=== PATIENT | male | born 1960 | race African-American/Black ===

== ENCOUNTER 2018-04-16 10:09 | Emergency (ER) | payer OTHER ==
[~2018-04-16] VITALS: Ht 188 cm; Wt 109.0 kg
[2018-04-16] MEDS ORDERED: HYDROCODONE/ACETAMINOPHEN 5/325MG TABLET PO ONE (10:45)
[2018-04-16 10:50] VITALS: BP 151/88
== END 2018-04-16 11:29 | disposition left against medical advice (07) ==
LOC: ER 11:13
DX: J06.9 Acute upper respiratory infection, unspecified (principal); M79.604 Pain in right leg; R07.89 Other chest pain; J44.9 Chronic obstructive pulmonary disease, unspecified; I10 Essential (primary) hypertension; F17.200 Nicotine dependence, unspecified, uncomplicated; Z98.890 Other specified postprocedural states
CPT/HCPCS: 93005; 99283

== ENCOUNTER 2018-04-23 12:42 | Inpatient (IN) | payer OTHER ==
[~2018-04-23] VITALS: Ht 190.5 cm; Wt 115.7 kg
[2018-04-23] MEDS ORDERED: ALBUTEROL (0.083%) 2.5MG/3ML NEB HHN STA ×2 (14:32→17:33)
[2018-04-23] MEDS ORDERED: IPRATROPIUM BROMIDE (0.02%) 0.5MG/2.5ML NEB HHN STA ×2 (14:32→17:33)
[2018-04-23 15:22] LABS: BASOPHILS % 0.7 % (0.0-2.0); EOSINOPHILS % 1.2 % (0.0-5.0); HEMATOCRIT. 41.5 % (42.0-52.0); HEMOGLOBIN. 13.9 g/dL (14.0-18.0); LYMPHOCYTES % 25.4 % (20.0-50.0); MEAN CORPUSCULAR HEMOGLOBIN 30.7 pg (28.0-32.0); MEAN CORPUSCULAR VOLUME 91.6 fL (80.0-94.0); MEAN PLATELET VOLUME 7.5 fl (7.4-10.4); MONOCYTES % 9.4 % (2.0-8.0); NEUTROPHILS % 63.3 % (40.0-76.0); PLATELET 239 x1000/uL (130-400); RED BLOOD CELL COUNT 4.53 mill/uL (4.7-6.1)
[2018-04-23 15:34] LABS: CHLORIDE 106 mEq/L (98-107)
[2018-04-23 15:35] LABS: INR 1.1; PARTIAL THROMBOPLASTIN TIME 26.8 sec (23.4-31.0); PROTHROMBIN TIME 10.7 sec (9.1-11.1)
[2018-04-23] MEDS ORDERED: METHYLPREDNISOLONE SOD SUCC 125 MG/2 ML VIAL IV STA (17:33)
[2018-04-23] MEDS ORDERED: MORPHINE SULFATE 2 MG/ML CPJ (NOT FOR IM USE) IV ONE (18:15)
[2018-04-23] MEDS ORDERED: LORAZEPAM 2MG/ML CPJ IV PRN (19:30)
[2018-04-23] MEDS ORDERED: DIPHENHYDRAMINE 50MG/ML VIAL IV PRN (19:30)
[2018-04-23] MEDS ORDERED: CLONIDINE 0.1MG TABLET PO PRN (19:30)
[2018-04-23] MEDS ORDERED: IPRATROPIUM/ALBUTEROL 0.5-3(2.5)MG/3ML NEB INH PRN (19:30)
[2018-04-23] MEDS ORDERED: ONDANSETRON HCL 4MG/2ML INJ IV PRN (19:30)
[2018-04-23] MEDS ORDERED: MAGNESIUM/ALUMINUM HYDROXIDE/SIMETHICONE 30ML UDC PO PRN (19:30)
[2018-04-23] MEDS ORDERED: ACETAMINOPHEN 325MG TABLET PO PRN (19:30)
[2018-04-23] MEDS ORDERED: GUAIFENESIN 200MG/10ML SUGAR FREE UDC PO PRN (19:30)
[2018-04-23] MEDS ORDERED: DOCUSATE SODIUM 100MG CAPSULE PO PRN (19:30)
[2018-04-23] MEDS ORDERED: ENOXAPARIN 40MG/0.4ML SYR SUBCUT SCH (21:50)
[2018-04-23] MEDS ORDERED: NA PHOS,M-B/NA PHOS,DI-BA ENEMA 118ML PR PRN (22:00)
[2018-04-23 22:21] VITALS: BP 163/87
[2018-04-23] MEDS ORDERED: LEVOFLOXACIN 500MG PREMIX 100 ML IV NR (22:30)
[2018-04-23] MEDS: HYDROCODONE/ACETAMINOPHEN 5/325MG TABLET PO PRN (23:15)
[2018-04-23 23:42] LABS: CHLORIDE 108 mEq/L (98-107)
[2018-04-24] MEDS: METHYLPREDNISOLONE SOD SUCC 125 MG/2 ML VIAL IV SCH ×3 (00:02→12:26)
[2018-04-24 00:28] VITALS: BP 150/91
[2018-04-24 04:00] VITALS: BP 153/91
[2018-04-24] MEDS: HYDROCODONE/ACETAMINOPHEN 5/325MG TABLET PO PRN (04:57)
[2018-04-24] MEDS: MORPHINE SULFATE 4 MG/ML CPJ (NOT FOR IM USE) IV PRN ×2 (06:02→12:25)
[2018-04-24 07:15] LABS: HEMATOCRIT. 44.1 % (42.0-52.0); HEMOGLOBIN. 14.9 g/dL (14.0-18.0); MEAN CORPUSCULAR HEMOGLOBIN 30.9 pg (28.0-32.0); MEAN CORPUSCULAR VOLUME 91.4 fL (80.0-94.0); MEAN PLATELET VOLUME 8.2 fl (7.4-10.4); PLATELET 239 x1000/uL (130-400); RED BLOOD CELL COUNT 4.82 mill/uL (4.7-6.1); RED CELL DISTRIBUTION WIDTH 13.9 % (11.6-14.6)
[2018-04-24 08:00] VITALS: BP 153/96
[2018-04-24] MEDS ORDERED: ASPIRIN 81MG EC TABLET PO SCH (09:00)
[2018-04-24 09:56] LABS: CHLORIDE 106 mEq/L (98-107)
[2018-04-24 10:02] LABS: LDL CHOLESTEROL 84 mg/dL (5-100); T4 FREE 0.83 ng/dL (0.76-1.46)
[2018-04-24 10:07] LABS: HDL CHOLESTEROL 70 mg/dL (40-59)
[2018-04-24 12:24] LABS: PLATELET ESTIMATE NORMAL
[2018-04-24 12:25] VITALS: BP 148/80
[2018-04-24 14:37] LABS: CLARITY URINE CLEAR (CLEAR); COLOR URINE YELLOW (YELLOW); KETONES URINE TRACE (NEGATIVE); LEUKOCYTE ESTERASE URINE NEGATIVE (NEGATIVE); NITRITE URINE NEGATIVE (NEGATIVE); OCCULT BLOOD URINE NEGATIVE (NEGATIVE); PROTEIN URINE NEGATIVE (NEGATIVE); SPECIFIC GRAVITY URINE 1.034 (1.005-1.030)
[2018-04-24 15:14] LABS: *AMPHETAMINES SCREEN URINE PRESUMTIVE POSITIVE (NEGATIVE); *BARBITURATES SCREEN URINE NEGATIVE (NEGATIVE); *BENZODIAZEPINES SCREEN URINE NEGATIVE (NEGATIVE); *COCAINE SCREEN URINE NEGATIVE (NEGATIVE); CANNABINOID URINE SCREEN PRESUMTIVE POSITIVE (NEGATIVE); METHADONE URINE SCREEN NEGATIVE (NEGATIVE); OPIATES URINE SCREEN PRESUMTIVE POSITIVE (NEGATIVE); PHENCYCLIDINE URINE SCREEN PRESUMTIVE POSITIVE (NEGATIVE)
[2018-04-24] MEDS ORDERED: LEVOFLOXACIN 500MG PREMIX 100 ML IV SCH (21:00)
== END 2018-04-24 15:44 | disposition left against medical advice (07) | DRG 140 ==
LOC: ER 12:42 → 6WST 18:12 → EDBEDREQ 18:14 → EDBEDREQTM 18:14 → ENRESERV 20:29 → EDBEDREQ 21:30
PROVIDERS: ADMIT Internal Medicine; ATTEND Internal Medicine
DX: J44.1 Chronic obstructive pulmonary disease with (acute) exacerbation (principal); J96.00 Acute respiratory failure, unspecified whether with hypoxia or hypercapnia; J69.0 Pneumonitis due to inhalation of food and vomit; I10 Essential (primary) hypertension
CPT/HCPCS: 36415; 80048; 80061; 80305; 83880; 84439; 84443; 84484; 87804; 93005; 93971; 94640; 96374; 96375; 99285; J1650; J1956; J2060; J2270; J2930; J7040; J7611

== ENCOUNTER 2018-04-26 07:52 | Emergency (ER) | payer OTHER ==
[~2018-04-26] VITALS: Ht 175.3 cm; Wt 80.0 kg
[2018-04-26] MEDS ORDERED: KETOROLAC 60MG/2ML VIAL IM ONE (08:45)
[2018-04-26 09:32] VITALS: BP 128/83
== END 2018-04-26 09:44 | disposition home or self-care (01) ==
LOC: ER 07:52
DX: M79.604 Pain in right leg (principal); I10 Essential (primary) hypertension; F15.10 Other stimulant abuse, uncomplicated; B59 Pneumocystosis; J44.9 Chronic obstructive pulmonary disease, unspecified; I25.2 Old myocardial infarction
CPT/HCPCS: 96372; 99283; J1885

== ENCOUNTER 2018-05-19 15:36 | Emergency (ER) | payer OTHER ==
[~2018-05-19] VITALS: Ht 200.7 cm; Wt 125.0 kg
[2018-05-19 18:39] LABS: BASOPHILS % 0.5 % (0.0-2.0); EOSINOPHILS % 1.1 % (0.0-5.0); HEMATOCRIT. 44.2 % (42.0-52.0); HEMOGLOBIN. 14.5 g/dL (14.0-18.0); LYMPHOCYTES % 17.8 % (20.0-50.0); MEAN CORPUSCULAR HEMOGLOBIN 30.3 pg (28.0-32.0); MEAN CORPUSCULAR VOLUME 92.8 fL (80.0-94.0); MEAN PLATELET VOLUME 8.2 fl (7.4-10.4); NEUTROPHILS % 69.6 % (40.0-76.0); PLATELET 215 x1000/uL (130-400); RED BLOOD CELL COUNT 4.77 mill/uL (4.7-6.1); RED CELL DISTRIBUTION WIDTH 14.3 % (11.6-14.6)
[2018-05-19 18:44] LABS: PROTHROMBIN TIME 10.3 sec (9.1-11.1)
[2018-05-19 18:46] LABS: CHLORIDE 104 mEq/L (98-107)
[2018-05-19] MEDS ORDERED: IBUPROFEN 600MG TABLET PO ONE (19:15)
[2018-05-19 19:34] VITALS: BP 171/104
== END 2018-05-19 20:00 | disposition home or self-care (01) ==
LOC: ER 15:36
DX: M79.604 Pain in right leg (principal); I10 Essential (primary) hypertension; J44.9 Chronic obstructive pulmonary disease, unspecified; F12.10 Cannabis abuse, uncomplicated; F17.200 Nicotine dependence, unspecified, uncomplicated
CPT/HCPCS: 36415; 71045; 83880; 84484; 93005; 93970; 99285

== ENCOUNTER 2018-06-28 22:09 | Emergency (ER) | payer OTHER ==
[~2018-06-28] VITALS: Ht 182.9 cm; Wt 109.0 kg
[2018-06-29 00:10] VITALS: BP 148/79
== END 2018-06-29 00:19 | disposition home or self-care (01) ==
LOC: ER 22:09
DX: G89.29 Other chronic pain (principal); M79.661 Pain in right lower leg; I10 Essential (primary) hypertension; J44.9 Chronic obstructive pulmonary disease, unspecified; F12.10 Cannabis abuse, uncomplicated; F17.200 Nicotine dependence, unspecified, uncomplicated; Z04.89 Encounter for examination and observation for other specified reasons; Z76.0 Encounter for issue of repeat prescription; Z86.718 Personal history of other venous thrombosis and embolism; Z98.890 Other specified postprocedural states
CPT/HCPCS: 99283

== ENCOUNTER 2018-07-22 17:16 | Emergency (ER) | payer OTHER ==
[~2018-07-22] VITALS: Ht 190.5 cm; Wt 115.0 kg
[2018-07-22] MEDS ORDERED: IPRATROPIUM BROMIDE (0.02%) 0.5MG/2.5ML NEB HHN STA (20:09)
[2018-07-22] MEDS ORDERED: ALBUTEROL (0.083%) 2.5MG/3ML NEB HHN STA (20:09)
[2018-07-22] MEDS ORDERED: METHYLPREDNISOLONE SOD SUCC 125 MG/2 ML VIAL IV STA (20:09)
[2018-07-22 21:37] LABS: *BARBITURATES SCREEN URINE NEGATIVE (NEGATIVE)
[2018-07-22 21:38] LABS: *AMPHETAMINES SCREEN URINE PRESUMTIVE POSITIVE (NEGATIVE); *BENZODIAZEPINES SCREEN URINE NEGATIVE (NEGATIVE); *COCAINE SCREEN URINE PRESUMTIVE POSITIVE (NEGATIVE); METHADONE URINE SCREEN NEGATIVE (NEGATIVE); OPIATES URINE SCREEN NEGATIVE (NEGATIVE); PHENCYCLIDINE URINE SCREEN PRESUMTIVE POSITIVE (NEGATIVE)
[2018-07-22 21:39] LABS: CANNABINOID URINE SCREEN PRESUMTIVE POSITIVE (NEGATIVE)
[2018-07-22 22:09] LABS: BASOPHILS % 0.5 % (0.0-2.0); HEMATOCRIT. 46.1 % (42.0-52.0); HEMOGLOBIN. 15.1 g/dL (14.0-18.0); MEAN CORPUSCULAR HEMOGLOBIN 30.5 pg (28.0-32.0); MEAN CORPUSCULAR VOLUME 93.4 fL (80.0-94.0); MEAN PLATELET VOLUME 7.9 fl (7.4-10.4); MONOCYTES % 8.3 % (2.0-8.0); NEUTROPHILS % 69.2 % (40.0-76.0); PLATELET 278 x1000/uL (130-400); RED BLOOD CELL COUNT 4.94 mill/uL (4.7-6.1); RED CELL DISTRIBUTION WIDTH 14.2 % (11.6-14.6)
[2018-07-22 22:13] LABS: PROTHROMBIN TIME 10.2 sec (9.1-11.1)
[2018-07-22 22:14] LABS: CHLORIDE 107 mEq/L (98-107)
[2018-07-22 22:18] LABS: ETHANOL BLOOD < 10 mg/dL
[2018-07-22] MEDS ORDERED: KETOROLAC 30MG/ML VIAL IV ONE (23:15)
[2018-07-22 23:25] VITALS: BP 157/82
== END 2018-07-23 01:21 | disposition home or self-care (01) ==
LOC: ER 17:16
DX: M79.661 Pain in right lower leg (principal); F14.10 Cocaine abuse, uncomplicated; F15.10 Other stimulant abuse, uncomplicated; F17.200 Nicotine dependence, unspecified, uncomplicated; F12.10 Cannabis abuse, uncomplicated; J44.9 Chronic obstructive pulmonary disease, unspecified; I10 Essential (primary) hypertension
CPT/HCPCS: 36415; 71045; 80053; 80305; 83880; 84484; 85025; 85610; 93005; 94640; 96374; 96375; 99284; G0482; J1885; J2930; J7611

== ENCOUNTER 2018-07-23 01:37 | Emergency (ER) | payer OTHER | END 2018-07-23 03:00 | disposition left against medical advice (07) | LOC: ER 01:37 | DX: M79.606 Pain in leg, unspecified (principal); Z53.21 Procedure and treatment not carried out due to patient leaving prior to being seen by health care provider ==

== ENCOUNTER 2018-07-31 15:44 | Emergency (ER) | payer OTHER ==
[~2018-07-31] VITALS: Ht 190.5 cm; Wt 121.0 kg
[2018-07-31] MEDS ORDERED: TRAMADOL 50MG TABLET PO ONE (23:15)
[2018-07-31 23:42] VITALS: BP 169/95
== END 2018-07-31 23:49 | disposition home or self-care (01) ==
LOC: ER 17:31
DX: R60.0 Localized edema (principal); G89.29 Other chronic pain; I10 Essential (primary) hypertension; J44.9 Chronic obstructive pulmonary disease, unspecified; F12.10 Cannabis abuse, uncomplicated; F17.200 Nicotine dependence, unspecified, uncomplicated; Z86.718 Personal history of other venous thrombosis and embolism; Z86.711 Personal history of pulmonary embolism; Z79.01 Long term (current) use of anticoagulants
CPT/HCPCS: 99283

== ENCOUNTER 2023-12-06 00:28 | Emergency (ER) | payer OTHER ==
[~2023-12-06] VITALS: Ht 188 cm; Wt 112.0 kg
[~2023-12-06 00:28] MED LIST: AMLO5TAB4 PO; ATEN100T PO; SERT25TA PO
[2023-12-06 00:32] VITALS: TEMP 97.9; O2SAT 95
[2023-12-06 01:21] LABS: BASOPHILS % 1.5 % (0.0-2.0); EOSINOPHILS % 0.9 % (0.0-5.0); HEMATOCRIT. 45.1 % (42.0-52.0); HEMOGLOBIN. 14.9 g/dL (14.0-18.0); LYMPHOCYTES % 13.4 % (20.0-50.0); MEAN CORPUSCULAR HEMOGLOBIN 31.5 pg (28.0-32.0); MEAN CORPUSCULAR VOLUME 95.3 fL (80.0-94.0); MEAN PLATELET VOLUME 7.9 fl (7.4-10.4); NEUTROPHILS % 73.2 % (40.0-76.0); PLATELET 240 x1000/uL (130-400); RED BLOOD CELL COUNT 4.73 mill/uL (4.7-6.1); RED CELL DISTRIBUTION WIDTH 14.7 % (11.6-14.6); WHITE BLOOD COUNT 4.6 x1000/uL (4.5-11.0)
[2023-12-06 01:27] LABS: CHLORIDE 109 mEq/L (98-107); POTASSIUM 3.7 mEq/L (3.5-5.1); SODIUM 139 mEq/L (136-145)
[2023-12-06 01:28] LABS: CALCIUM 9.2 mg/dL (8.7-10.4); CARBON DIOXIDE 26 mEq/L (21-32)
[2023-12-06 01:33] LABS: CREATININE 1.2 mg/dL (0.6-1.3); GLUCOSE 88 mg/dL (70-105); UREA NITROGEN BLOOD 12 mg/dL (9-23)
[2023-12-06] MEDS ORDERED: ACET-2708 MT (03:01)
[2023-12-06] MEDS ORDERED: AMLO5TAB88 MT (03:01)
[2023-12-06] MEDS ORDERED: ATEN100T MT (03:01)
[2023-12-06 03:53] VITALS: BP 139/99; PULSE 90; RESP 18
== END 2023-12-06 04:14 | disposition home or self-care (01) ==
LOC: ER 00:28
DX: I89.0 Lymphedema, not elsewhere classified (principal); K42.9 Umbilical hernia without obstruction or gangrene; J44.1 Chronic obstructive pulmonary disease with (acute) exacerbation; I10 Essential (primary) hypertension; F14.10 Cocaine abuse, uncomplicated; F12.10 Cannabis abuse, uncomplicated; Z76.0 Encounter for issue of repeat prescription
CPT/HCPCS: 80048; 85025; 36415; 93971; 71045; 93005; 99285; Z7610

== ENCOUNTER 2024-01-06 19:38 | Emergency (ER) | payer OTHER ==
[~2024-01-06] VITALS: Ht 180.3 cm; Wt 80.0 kg
[~2024-01-06 19:38] MED LIST changes: +ACET-2708 MT; +AMLO5TAB88 MT; +ATEN100T MT
[2024-01-06 19:42] VITALS: O2SAT 97
[2024-01-06 20:11] VITALS: TEMP 98.9
[2024-01-06] MEDS: KETOROLAC 15MG/ML VIAL IV ONE (20:39)
[2024-01-06 22:26] VITALS: BP 159/90; PULSE 99; RESP 21
[2024-01-06] MEDS ORDERED: AMLO5TAB88 MT (22:45)
== END 2024-01-06 23:04 | disposition home or self-care (01) ==
LOC: ER 19:38
DX: K42.9 Umbilical hernia without obstruction or gangrene (principal); J44.9 Chronic obstructive pulmonary disease, unspecified; I10 Essential (primary) hypertension; F14.10 Cocaine abuse, uncomplicated; F12.10 Cannabis abuse, uncomplicated
CPT/HCPCS: 99283; 96374; J1885

== ENCOUNTER 2024-01-13 23:48 | Emergency (ER) | payer OTHER ==
[~2024-01-13] VITALS: Ht 182.9 cm; Wt 95.0 kg
[2024-01-14 00:08] VITALS: BP 168/98; PULSE 93; RESP 20; TEMP 97.3; O2SAT 95
[2024-01-14] MEDS ORDERED: ACETAMINOPHEN 325MG TABLET PO ONE (01:45)
[2024-01-14 06:27] LABS: BASOPHILS % 1.1 % (0.0-2.0); EOSINOPHILS % 1.8 % (0.0-5.0); HEMATOCRIT. 49.7 % (42.0-52.0); HEMOGLOBIN. 16.2 g/dL (14.0-18.0); LYMPHOCYTES % 24.7 % (20.0-50.0); MEAN CORPUSCULAR HEMOGLOBIN 30.7 pg (28.0-32.0); MEAN CORPUSCULAR HGB CONC 32.6 g/dL (31.0-37.0); MEAN CORPUSCULAR VOLUME 94.2 fL (80.0-94.0); MONOCYTES % 9.3 % (2.0-8.0); NEUTROPHILS % 63.1 % (40.0-76.0); PLATELET 261 x1000/uL (130-400); RED BLOOD CELL COUNT 5.28 mill/uL (4.7-6.1); RED CELL DISTRIBUTION WIDTH 14.5 % (11.6-14.6); WHITE BLOOD COUNT 5.8 x1000/uL (4.5-11.0)
[2024-01-14 06:37] LABS: CHLORIDE 107 mEq/L (98-107); POTASSIUM 3.9 mEq/L (3.5-5.1); SODIUM 142 mEq/L (136-145)
[2024-01-14 06:38] LABS: CALCIUM 9.2 mg/dL (8.7-10.4); CARBON DIOXIDE 30 mEq/L (21-32)
[2024-01-14 06:43] LABS: CREATININE 0.9 mg/dL (0.6-1.3); GLUCOSE 86 mg/dL (70-105); UREA NITROGEN BLOOD 10 mg/dL (9-23)
== END 2024-01-14 11:03 | disposition left against medical advice (07) ==
LOC: ER 23:48
DX: R10.9 Unspecified abdominal pain (principal); Z53.21 Procedure and treatment not carried out due to patient leaving prior to being seen by health care provider
CPT/HCPCS: 36415; 80048; 85025; 99283

== ENCOUNTER 2024-02-26 22:03 | Emergency (ER) | payer OTHER ==
[~2024-02-26] VITALS: Ht 182.9 cm; Wt 78.0 kg
[2024-02-26 22:13] VITALS: O2SAT 94
[2024-02-26 22:45] VITALS: TEMP 98
[2024-02-26] MEDS: ACETAMINOPHEN 325MG TABLET PO ONE (22:45)
[2024-02-26] MEDS: LIDOCAINE 5% PATCH TOP SCH (22:45)
[2024-02-26] MEDS: KETOROLAC 30MG/ML VIAL IM ONE (22:45)
[2024-02-26] MEDS ORDERED: IBUP-2029 MT (22:46)
[2024-02-26] MEDS ORDERED: BACL-141 MT (22:46)
[2024-02-26] MEDS ORDERED: ACETAMINOPHEN 325MG TABLET PO NR (23:00)
[2024-02-26] MEDS ORDERED: KETOROLAC 30MG/ML VIAL IM NR (23:00)
[2024-02-27 03:01] VITALS: BP 138/92; PULSE 84; RESP 18; O2SAT 95
== END 2024-02-27 03:06 | disposition home or self-care (01) ==
LOC: ER 22:03
DX: M54.50 Low back pain, unspecified (principal); J44.9 Chronic obstructive pulmonary disease, unspecified; I10 Essential (primary) hypertension; F14.10 Cocaine abuse, uncomplicated; F12.10 Cannabis abuse, uncomplicated; F17.210 Nicotine dependence, cigarettes, uncomplicated; Z79.899 Other long term (current) drug therapy
CPT/HCPCS: 96372; 99285; 72131; J1885; Z7610

== ENCOUNTER 2024-08-10 10:11 | Emergency (ER) | payer OTHER ==
[~2024-08-10] VITALS: Ht 180.3 cm; Wt 86.0 kg
[~2024-08-10 10:11] MED LIST changes: +AMLO10TA80 PO; -AMLO5TAB4 PO; +AMLO5TAB5 PO; +ASPI-1160 PO; +BACL-141 MT; +HYDR25TA PO; +IBUP-2028 MT; +IBUP-2029 MT; +LOSA25TA26 PO; +METO-539 PO; +NAPR-681 MT; +QUET50TA PO
[2024-08-10 10:12] VITALS: BP 160/88; PULSE 100; RESP 18; TEMP 37; O2SAT 96
[2024-08-10] MEDS ORDERED: FURO-152 MT (10:45)
[2024-08-10] MEDS ORDERED: ACET-2708 MT (10:45)
[2024-08-10] MEDS ORDERED: ALBU90AE INH (11:09)
[2024-08-10] MEDS: KETOROLAC 30MG/ML VIAL IV ONE (11:15)
[2024-08-10] MEDS: FUROSEMIDE 20MG TABLET PO ONE (11:15)
== END 2024-08-10 14:31 | disposition home or self-care (01) ==
LOC: ER 11:15
DX: G89.29 Other chronic pain (principal); M79.604 Pain in right leg; F10.90 Alcohol use, unspecified, uncomplicated; I89.0 Lymphedema, not elsewhere classified; I10 Essential (primary) hypertension; J44.9 Chronic obstructive pulmonary disease, unspecified; Z79.1 Long term (current) use of non-steroidal anti-inflammatories (NSAID); Z98.890 Other specified postprocedural states; Z79.82 Long term (current) use of aspirin; Z79.899 Other long term (current) drug therapy; Y90.9 Presence of alcohol in blood, level not specified
CPT/HCPCS: 96374; 99283; J1885; Z7610

== ENCOUNTER 2024-08-10 14:34 | Emergency (ER) | payer OTHER ==
[~2024-08-10] VITALS: Ht 182.9 cm; Wt 88.0 kg
[~2024-08-10 14:34] MED LIST changes: +ALBU90AE INH; +FURO-152 MT
[2024-08-10 14:36] VITALS: PULSE 10; O2SAT 98
[2024-08-10 14:45] VITALS: BP 152/101; RESP 18; TEMP 37.2; O2SAT 99
== END 2024-08-11 04:43 | disposition home or self-care (01) ==
LOC: ER 14:53
DX: G89.29 Other chronic pain (principal); M25.559 Pain in unspecified hip; I10 Essential (primary) hypertension; F10.90 Alcohol use, unspecified, uncomplicated; J44.9 Chronic obstructive pulmonary disease, unspecified; Z59.00 Homelessness unspecified; Z79.1 Long term (current) use of non-steroidal anti-inflammatories (NSAID); Z79.82 Long term (current) use of aspirin; Z79.899 Other long term (current) drug therapy; Y90.9 Presence of alcohol in blood, level not specified
CPT/HCPCS: 93971; 99284

== ENCOUNTER 2024-08-11 04:45 | Emergency (ER) | payer OTHER ==
[~2024-08-11] VITALS: Ht 182.9 cm; Wt 88.0 kg
[2024-08-11 04:47] VITALS: O2SAT 99
[2024-08-11 05:47] VITALS: BP 152/101; PULSE 107; RESP 18; TEMP 37.2; O2SAT 99
== END 2024-08-11 08:01 | disposition left against medical advice (07) ==
LOC: ER 04:45
DX: R07.9 Chest pain, unspecified (principal); Z53.21 Procedure and treatment not carried out due to patient leaving prior to being seen by health care provider

== ENCOUNTER 2025-07-06 19:02 | Inpatient (IN) | payer MEDICAID ==
[~2025-07-06] VITALS: Ht 218.4 cm; Wt 118.0 kg
[~2025-07-06 19:02] MED LIST changes: -ACET-2708 MT; -AMLO10TA80 PO; -AMLO5TAB5 PO; -AMLO5TAB88 MT; -ATEN100T MT; -ATEN100T PO; -BACL-141 MT; +CLON0.1T PO; +DILT60TA4 PO; +DIVA-156 PO; -FURO-152 MT; +FURO20TA4 PO; -HYDR25TA PO; +HYDR25TA78 PO; -IBUP-2028 MT; -IBUP-2029 MT; -LOSA25TA26 PO; -METO-539 PO; -NAPR-681 MT; +NICO-786 TP; +OLAN5TAB74 PO; +P20 MT; -QUET50TA PO; -SERT25TA PO; +SERT25TA74 PO
[2025-07-06] MEDS ORDERED: METHYLPREDNISOLONE SOD SUCC 125MG/2ML (ACT-O-VIAL) IV ONE (19:30)
[2025-07-06 20:03] VITALS: PULSE 118; RESP 22; O2SAT 93
[2025-07-06] MEDS: IPRATROPIUM BROMIDE (0.02%) 0.5MG/2.5ML NEB HHN SCH (20:03)
[2025-07-06 20:16] LABS: BG BASE EXCESS 9.2 mmol/L (-2.0-3.0); BG CARBOXYHEMOGLOBIN 2.8 % (0.5-1.5); BG DEOXYHEMOGLOBIN 8.4 % (0.0-5.0); BG FLOW(L/min) 2.00 L/min; BG FRACTION INSPIRED OXYGEN 28; BG HCO3 ACT 36.2 mmol/L (21.0-28.0); BG METHEMOGLOBIN 0.3 % (0.5-1.5); BG OXYGEN SATURATION 91.3 % (94.0-98.0); BG OXYHEMOGLOBIN 88.5 % (94.0-98.0); BG PCO2 61.9 mmHg (35.0-48.0); BG PH 7.385 (7.350-7.450); BG PO2 61.6 mmHg (83.0-108.0); BG SAMPLE SITE LEFT RADIAL; BG TOTAL HEMOGLOBIN 11.8 g/dL (13.5-17.5); BG VENT MODE NASAL CANNULA
[2025-07-06 20:35] LABS: BASOPHILS % 0.7 % (0.0-2.0); EOSINOPHILS % 0.0 % (0.0-5.0); HEMATOCRIT. 34.1 % (42.0-52.0); HEMOGLOBIN. 10.7 g/dL (14.0-18.0); LYMPHOCYTES % 7.2 % (20.0-50.0); MONOCYTES % 10.7 % (2.0-8.0); NEUTROPHILS % 81.4 % (40.0-76.0); RED BLOOD CELL COUNT 3.77 mill/uL (4.7-6.1); RED CELL DISTRIBUTION WIDTH 17.3 % (11.6-14.6)
[2025-07-06 20:46] LABS: INR 1.1
[2025-07-06 20:48] LABS: CREATININE 0.9 mg/dL (0.6-1.3); PROTEIN TOTAL 6.0 g/dL (6.0-8.3); UREA NITROGEN BLOOD 30 mg/dL (9-23)
[2025-07-06 20:49] LABS: TROPONIN I HIGH SENSITIVITY 12 ng/L (3.0-53)
[2025-07-06 20:50] LABS: ASPARTATE AMINOTRANSFERASE 20 IU/L (<34); BILIRUBIN DIRECT < 0.1 mg/dL (<=3.0); BILIRUBIN TOTAL 0.4 mg/dL (0.1-1.0)
[2025-07-06 20:55] LABS: MEAN PLATELET VOLUME 8.6 fl (7.4-10.4)
[2025-07-06 20:56] LABS: PLATELET 121 x1000/uL (130-400)
[2025-07-06] MEDS: FUROSEMIDE 40MG/4ML VIAL IVP ONE (21:25)
[2025-07-06] MEDS: MAGNESIUM 2 G PREMIX 50 ML IV ONE (21:45)
[2025-07-06] MEDS ORDERED: METHYLPREDNISOLONE SOD SUCC 125MG/2ML (ACT-O-VIAL) IV NR (22:00)
[2025-07-06 22:10] VITALS: BP 154/94; PULSE 114; RESP 20; TEMP 37.0852; TEMP 37.1; O2SAT 95
[2025-07-06 23:40] VITALS: RESP 25
[2025-07-07] VITALS (9 sets, daily range): BP systolic 103–158; BP diastolic 65–100; PULSE 88–110; RESP 17–26; TEMP 36.4–37.6; O2SAT 92–100
[2025-07-07] MEDS ORDERED: DEXTROSE 50% WATER 50ML SYRINGE IV PRN (03:45)
[2025-07-07] MEDS: CLONIDINE 0.1MG TABLET PO PRN (03:53)
[2025-07-07] MEDS: INSULIN LISPRO 100 UNITS/ML SUBCUT NR ×2 (03:53→06:40)
[2025-07-07] MEDS ORDERED: NALOXONE HCL 0.4MG/ML VIAL IV PRN (04:30)
[2025-07-07] MEDS: HYDROCODONE/ACETAMINOPHEN 5/325MG TABLET PO PRN (04:41)
[2025-07-07 06:26] LABS: HEMATOCRIT. 32.7 % (42.0-52.0); HEMOGLOBIN. 10.3 g/dL (14.0-18.0); MEAN PLATELET VOLUME 8.5 fl (7.4-10.4); PLATELET 121 x1000/uL (130-400); RED BLOOD CELL COUNT 3.66 mill/uL (4.7-6.1); RED CELL DISTRIBUTION WIDTH 17.2 % (11.6-14.6)
[2025-07-07] MEDS: BLOOD SUGAR DIAGNOSTIC STRIP TEST SCH (06:29)
[2025-07-07] MEDS: HYDRALAZINE HCL 25MG TABLET PO SCH (06:39)
[2025-07-07] MEDS: DILTIAZEM HCL 60MG TABLET PO SCH (06:39)
[2025-07-07] MEDS: INSULIN LISPRO 100 UNITS/ML SUBCUT SCH (06:40)
[2025-07-07 07:04] LABS: CREATININE 0.9 mg/dL (0.6-1.3); TRIGLYCERIDE 83 mg/dL (0-150); UREA NITROGEN BLOOD 31 mg/dL (9-23)
[2025-07-07 07:05] LABS: LDL CHOLESTEROL 97 mg/dL (5-100)
[2025-07-07] MEDS: ASPIRIN 81MG TABLET PO SCH (09:00)
[2025-07-07] MEDS ORDERED: IPRATROPIUM/ALBUTEROL 0.5-3(2.5)MG/3ML NEB HHN PRN (09:30)
[2025-07-07] MEDS: DIVALPROEX SODIUM 250MG DR TABLET PO SCH (10:55)
[2025-07-07] MEDS: FUROSEMIDE 40MG TABLET PO SCH (10:55)
[2025-07-07] MEDS: SERTRALINE HCL 25MG TABLET PO SCH (10:55)
[2025-07-07] MEDS: ENOXAPARIN 30MG/0.3ML SYR SUBCUT SCH (10:56)
[2025-07-07] MEDS: OLANZAPINE 5MG TABLET PO SCH (10:56)
[2025-07-07] MEDS: FUROSEMIDE 40MG/4ML VIAL IVP SCH (13:40)
[2025-07-07] MEDS: INSULIN GLARGINE 100 UNITS/ML SUBCUT SCH ×2 (13:42→22:10)
[2025-07-07 15:54] LABS: LYMPHOCYTES % MANUAL 3.0 % (20.0-50.0); MONOCYTES % MANUAL 5.0 % (2.0-8.0); NEUTROPHILS % MANUAL 92.0 % (45.0-75.0); PLATELET ESTIMATE NORMAL
[2025-07-07] MEDS ORDERED: AZITHROMYCIN 500MG/250ML 250 ML IV SCH (18:30)
[2025-07-07] MEDS ORDERED: GUAIFENESIN 200MG 200 MG TABLET PO PRN (19:00)
[2025-07-07] MEDS: AZITHROMYCIN 500 MG TABLET PO SCH (20:40)
[2025-07-07] MEDS: IPRATROPIUM/ALBUTEROL 0.5-3(2.5)MG/3ML NEB HHN SCH (21:59)
[2025-07-08] VITALS: BP 119/72; PULSE 87; RESP 18; TEMP 36.9; O2SAT 100
[2025-07-08 04:00] VITALS: BP 121/72; PULSE 94; RESP 18; TEMP 36.8; O2SAT 100
[2025-07-08 04:36] VITALS: RESP 28
[2025-07-08 08:30] VITALS: BP 116/81; PULSE 108; RESP 18; TEMP 36.7; O2SAT 95
[2025-07-08] MEDS ORDERED: ENOXAPARIN 40MG/0.4ML SYR SUBCUT SCH (09:00)
[2025-07-09] MEDS ORDERED: FURO20TA4 PO (16:10)
[2025-07-09] MEDS ORDERED: ALBU90AE INH (16:10)
[2025-07-09] MEDS ORDERED: DILT60TA4 PO (16:10)
[2025-07-09] MEDS ORDERED: DIVA-156 PO (16:10)
[2025-07-09] MEDS ORDERED: SERT25TA74 PO (16:10)
[2025-07-09] MEDS ORDERED: ASPI-1160 PO (16:10)
[2025-07-09] MEDS ORDERED: HYDR-4001 MT (16:10)
[2025-07-09] MEDS ORDERED: OLAN5TAB74 PO (16:10)
[2025-07-09] MEDS ORDERED: CLON0.1T PO (16:10)
[2025-07-09] MEDS ORDERED: NICO-786 TP (16:10)
== END 2025-07-08 08:45 | disposition left against medical advice (07) | DRG 194 ==
LOC: ER 19:02 → 7WST 20:57 → EDBEDREQ 20:59 → EDBEDREQTM 20:59 → ENRESERV 21:08 → CANRESERV 21:08 → ENRESERV 21:13
PROVIDERS: ADMIT Internal Medicine; ATTEND Internal Medicine
PROC: 5A09357 Assistance with Respiratory Ventilation, Less than 24 Consecutive Hours, Continuous Positive Airway Pressure (ICD-10-PCS; principal; 2025-07-07)
PROC: 5A09357 Assistance with Respiratory Ventilation, Less than 24 Consecutive Hours, Continuous Positive Airway Pressure (ICD-10-PCS; 2025-07-08)
DX: I11.0 Hypertensive heart disease with heart failure (principal); J96.22 Acute and chronic respiratory failure with hypercapnia; J96.21 Acute and chronic respiratory failure with hypoxia; J44.1 Chronic obstructive pulmonary disease with (acute) exacerbation; D72.829 Elevated white blood cell count, unspecified; D64.9 Anemia, unspecified; E11.9 Type 2 diabetes mellitus without complications; E66.01 Morbid (severe) obesity due to excess calories; I50.33 Acute on chronic diastolic (congestive) heart failure; I36.1 Nonrheumatic tricuspid (valve) insufficiency; F19.11 Other psychoactive substance abuse, in remission; Z53.21 Procedure and treatment not carried out due to patient leaving prior to being seen by health care provider; F17.210 Nicotine dependence, cigarettes, uncomplicated; Z79.82 Long term (current) use of aspirin; Z79.899 Other long term (current) drug therapy; Z91.199 Patient's noncompliance with other medical treatment and regimen due to unspecified reason; Z68.24 Body mass index [BMI] 24.0-24.9, adult
CPT/HCPCS: 36415; 36600; 71045; 80048; 80061; 80076; 82375; 82805; 82962; 83735; 83880; 84145; 84484; 85025; 93005; 94070; 94640; 94660; 94664; 98960; 99291; J1650; J1815; J1938; J2919; J3475